=== PATIENT | female | born 1985 | race Caucasian/White ===

== ENCOUNTER → 2016-06-03 | Outpatient (CLI) | payer BC ==
--- NOTE | 2016-06-04 05:47 | REP ---
LEFT ANKLE, FOUR VIEWS: HISTORY: Injury. There is no acute fracture or dislocation. The joint space is normal in appearance. Soft tissue swelling is present over the lateral malleolus. IMPRESSION: There is no acute fracture or dislocation. Signed by Shaka Chung MD 06/04/2016 08:47 A
== END ==
LOC: M WUC 18:45
PROVIDERS: ATTEND Physician Assistant
DX: M25.572 Pain in left ankle and joints of left foot (principal)

== ENCOUNTER → 2020-06-23 | Outpatient (REF) | LOC: M LABSMTC 10:39 | PROVIDERS: ATTEND Pediatrics | DX: Z20.818 Contact with and (suspected) exposure to other bacterial communicable diseases (principal) ==

== ENCOUNTER → 2020-12-05 | Outpatient (CLI) | payer BC ==
[2020-12-05 13:37] LABS: C REACTIVE PROTEIN QUANTITATIV 1.29 MG/DL (0.00-0.30)
[2020-12-05 14:01] LABS: HEPATITIS B SURFACE ANTIGEN NEGATIVE (NEGATIVE)
[2020-12-05 14:28] LABS: HEPATITIS B CORE ANTIBODY IGM NEGATIVE (NEGATIVE)
[2020-12-05 14:31] LABS: HEPATITIS A ANTIBODY IGM NEGATIVE (NEGATIVE); HIV 1&2 SCREEN CENTAUR NEGATIVE (NEGATIVE)
[2020-12-06 17:07] LABS: ANTINUCLEAR ANTIBODIES DIRECT Negative (Negative); CYTOMEGALOVIRUS IgG ANTIBODY <0.60 U/mL (0.00-0.59)
== END ==
LOC: M LAB 11:26
PROVIDERS: ATTEND Nurse Practitioner
DX: D72.820 Lymphocytosis (symptomatic) (principal); R74.8 Abnormal levels of other serum enzymes; R53.82 Chronic fatigue, unspecified

== ENCOUNTER → 2021-05-28 | Outpatient (CLI) | payer BC | LOC: M LAB 10:37 | PROVIDERS: ATTEND Nurse Practitioner | DX: E55.9 Vitamin D deficiency, unspecified (principal) ==

== ENCOUNTER → 2021-12-12 | Outpatient (CLI) | payer BC | LOC: M LAB 12:56 | PROVIDERS: ATTEND Advanced Practice Midwife | DX: O20.0 Threatened abortion (principal) ==

== ENCOUNTER → 2021-12-17 | Outpatient (CLI) | payer BC | LOC: M RAD 10:52 | PROVIDERS: ATTEND Advanced Practice Midwife | DX: O20.0 Threatened abortion (principal); Z3A.01 Less than 8 weeks gestation of pregnancy ==

== ENCOUNTER → 2021-12-26 | Outpatient (CLI) | payer BC ==
[~2021-12-26] MED LIST: ERGO500029 PO; PRENTAB7 PO
== END ==
LOC: M LABSMTC 09:22
PROVIDERS: ATTEND Anesthesiology
DX: Z01.818 Encounter for other preprocedural examination (principal); Z11.52 Encounter for screening for COVID-19

== ENCOUNTER 2021-12-28 13:21 | Day surgery (SDC) | payer BC ==
[~2021-12-28] VITALS: Ht 165.1 cm; Wt 81.6 kg
[2021-12-28 13:54] LABS: HEMOGLOBIN 10.1 g/dl (12.0-15.5); MEAN CORPUSCULAR HEMOGLOBIN 20.5 pg (27.0-33.0); MEAN CORPUSCULAR HGB CONC 30.6 g/dl (32.0-36.5); MEAN CORPUSCULAR VOLUME 67.1 fl (80.0-96.0); PLATELET COUNT, AUTOMATED 376 10^3/uL (150-450); RED BLOOD COUNT 4.92 10^6/uL (4.00-5.40); WHITE BLOOD COUNT 9.7 10^3/uL (4.0-10.0)
[2021-12-28] MEDS ORDERED: METOCLOPRAMIDE INJ 10MG/2ML VIAL (J2765 PER 1) As Ordered ONE (16:00)
[2021-12-28] MEDS ORDERED: ONDANSETRON 4MG 2ML VIAL As Ordered ONE (16:00)
[2021-12-28] MEDS ORDERED: ACETAMINOPHEN 1000MG 100ML IV BTL (OFIRMEV) (J0131 PER 10MG) As Ordered ONE (16:00)
[2021-12-28] MEDS ORDERED: MIDAZOLAM INJ 2MG/2ML VIAL (J2250 PER 1MG) As Ordered ONE (16:00)
[2021-12-28] MEDS ORDERED: propofoL 200 MG/20 ML VIAL As Ordered ONE (16:00)
[2021-12-28] MEDS ORDERED: LIDOCAINE 2% 100MG/5ML SDV (FOR ANES.) As Ordered ONE (16:00)
[2021-12-28] MEDS ORDERED: KETOROLAC 60MG 2ML VIAL As Ordered ONE (16:00)
[2021-12-28] MEDS ORDERED: fentaNYL 100 MCG/2 ML INJECTION As Ordered ONE (16:00)
[2021-12-28] MEDS ORDERED: LIDOCAINE W/EPINEPHRINE 1% 20ML VIAL As Ordered ONE (17:17)
[2021-12-28] MEDS ORDERED: LIDOCAINE 1% SDV 30ML VIAL As Ordered ONE (17:19)
[2021-12-28] MEDS ORDERED: METHYLERGONOVINE MALEATE 0.2 MG/ML VIAL (J2210) As Ordered ONE (17:20)
[2021-12-28] MEDS ORDERED: SCOPOLAMINE 1MG TRANSDERMAL PATCH TOP ONE (17:30)
[2021-12-28] MEDS ORDERED: SCOPOLAMINE 1MG TRANSDERMAL PATCH As Ordered ONE (17:31)
[2021-12-28] MEDS ORDERED: LR 1,000 ML IV SCH (18:40)
[2021-12-28] MEDS ORDERED: RHOGAM 300 MCG (1500 IU) INJ (J2790) IM ONE (19:00)
[2021-12-28] MEDS ORDERED: ACETAMINOPHEN 500 MG TAB PO ONE (19:00)
[2021-12-28] MEDS ORDERED: DOXYCYCLINE HYCLATE 100MG TABLET PO ONE (19:00)
[2021-12-28 19:15] VITALS: BP 119/79
== END 2021-12-28 19:24 | disposition home or self-care (01) ==
LOC: M SDC 13:21
PROVIDERS: ATTEND Specialist
DX: O02.1 Missed abortion (principal); Z91.040 Latex allergy status
CPT/HCPCS: 36415; 59820; 85027; 86850; 86900; 86901; 88305; J0131; J1885; J2250; J2405; J2765; J2790; J3010

== ENCOUNTER → 2022-03-11 | Outpatient (CLI) | payer BC | LOC: M LAB 15:30 | PROVIDERS: ATTEND Advanced Practice Midwife | DX: O09.299 Supervision of pregnancy with other poor reproductive or obstetric history, unspecified trimester (principal); Z3A.00 Weeks of gestation of pregnancy not specified ==

== ENCOUNTER → 2022-03-13 | Outpatient (CLI) | payer BC | LOC: M LAB 15:32 | PROVIDERS: ATTEND Advanced Practice Midwife | DX: O09.299 Supervision of pregnancy with other poor reproductive or obstetric history, unspecified trimester (principal); Z3A.00 Weeks of gestation of pregnancy not specified ==

== ENCOUNTER → 2022-03-14 | Outpatient (CLI) | payer BC | LOC: M RAD 15:06 | PROVIDERS: ATTEND Obstetrics & Gynecology | DX: O03.9 Complete or unspecified spontaneous abortion without complication (principal) | CPT/HCPCS: 36415; 76817; 86901; J2790 ==

== ENCOUNTER → 2022-03-15 | Outpatient (CLI) | payer BC ==
[2022-03-15 17:22] LABS: HEMATOCRIT 33.2 % (36.0-47.0); MEAN CORPUSCULAR HEMOGLOBIN 20.4 pg (27.0-33.0); MEAN CORPUSCULAR HGB CONC 30.1 g/dl (32.0-36.5); MEAN CORPUSCULAR VOLUME 67.8 fl (80.0-96.0); PLATELET COUNT, AUTOMATED 385 10^3/uL (150-450); WHITE BLOOD COUNT 6.5 10^3/uL (4.0-10.0)
[2022-03-15 17:39] LABS: ALBUMIN 3.9 GM/DL (3.2-5.2); ALT/SGPT 19 U/L (12-78); BILIRUBIN,TOTAL 0.4 MG/DL (0.2-1.0); BLOOD UREA NITROGEN 8 MG/DL (7-18); CALCIUM LEVEL 8.9 MG/DL (8.5-10.1); CARBON DIOXIDE LEVEL 26 MEQ/L (21-32); CHLORIDE LEVEL 109 MEQ/L (98-107); CREATININE FOR GFR 0.78 MG/DL (0.55-1.30); GLOMERULAR FILTRATION RATE > 60.0 (>60); GLUCOSE, FASTING 119 MG/DL (70-100); HCG, SERUM QUANTITATIVE 500 MIU/ML; POTASSIUM SERUM 3.8 MEQ/L (3.5-5.1); SODIUM LEVEL 142 MEQ/L (136-145); TOTAL PROTEIN 7.4 GM/DL (6.4-8.2)
== END ==
LOC: M LAB 15:46
PROVIDERS: ATTEND Obstetrics & Gynecology
DX: O03.9 Complete or unspecified spontaneous abortion without complication (principal)

== ENCOUNTER → 2022-03-22 | Outpatient (CLI) | payer BC | LOC: M LAB 09:26 | PROVIDERS: ATTEND Obstetrics & Gynecology | DX: O03.9 Complete or unspecified spontaneous abortion without complication (principal) ==

== ENCOUNTER → 2022-03-25 | Outpatient (CLI) | payer BC | LOC: M LAB 11:14 | PROVIDERS: ATTEND Obstetrics & Gynecology | DX: O03.9 Complete or unspecified spontaneous abortion without complication (principal) ==

== ENCOUNTER → 2022-08-26 | Outpatient (CLI) | payer BC ==
[2022-08-26 17:44] LABS: HEMATOCRIT 31.5 % (36.0-47.0); HEMOGLOBIN 9.8 g/dl (12.0-15.5); MEAN CORPUSCULAR HEMOGLOBIN 20.6 pg (27.0-33.0); MEAN CORPUSCULAR HGB CONC 31.1 g/dl (32.0-36.5); MEAN CORPUSCULAR VOLUME 66.2 fl (80.0-96.0); PLATELET COUNT, AUTOMATED 324 10^3/uL (150-450); RED BLOOD COUNT 4.76 10^6/uL (4.00-5.40); WHITE BLOOD COUNT 7.8 10^3/uL (4.0-10.0)
[2022-08-26 18:32] LABS: HIV 1&2 SCREEN ATELLICA NEGATIVE (NEGATIVE)
[2022-08-26 19:14] LABS: GC DNA AMPLIFICATION NEGATIVE (NEGATIVE)
== END ==
LOC: M LAB 16:11
PROVIDERS: ATTEND Specialist
DX: Z36.9 Encounter for antenatal screening, unspecified (principal)

== ENCOUNTER → 2022-10-10 | Outpatient (CLI) | payer BC | LOC: M RAD 13:19 | PROVIDERS: ATTEND Obstetrics & Gynecology | DX: Z34.92 Encounter for supervision of normal pregnancy, unspecified, second trimester (principal); Z3A.20 20 weeks gestation of pregnancy ==

== ENCOUNTER → 2022-11-26 | Outpatient (CLI) | payer BC ==
[2022-11-26 13:44] LABS: HEMATOCRIT 30.5 % (36.0-47.0); HEMOGLOBIN 9.4 g/dl (12.0-15.5); MEAN CORPUSCULAR HEMOGLOBIN 21.3 pg (27.0-33.0); MEAN CORPUSCULAR HGB CONC 30.8 g/dl (32.0-36.5); PLATELET COUNT, AUTOMATED 270 10^3/uL (150-450); RED BLOOD COUNT 4.42 10^6/uL (4.00-5.40); WHITE BLOOD COUNT 8.5 10^3/uL (4.0-10.0)
[2022-11-26 15:06] LABS: GC DNA AMPLIFICATION NEGATIVE (NEGATIVE)
== END ==
LOC: M LAB 11:44
PROVIDERS: ATTEND Obstetrics & Gynecology
DX: O09.522 Supervision of elderly multigravida, second trimester (principal); Z3A.00 Weeks of gestation of pregnancy not specified

== ENCOUNTER → 2023-01-08 | Outpatient (CLI) | payer BC | LOC: M RAD 13:25 | PROVIDERS: ATTEND Obstetrics & Gynecology | DX: O24.419 Gestational diabetes mellitus in pregnancy, unspecified control (principal); Z3A.33 33 weeks gestation of pregnancy ==

== ENCOUNTER → 2023-01-28 | Outpatient (CLI) | payer BC ==
[2023-01-28 14:52] LABS: HEMATOCRIT 34.5 % (36.0-47.0); HEMOGLOBIN 10.5 g/dl (12.0-15.5); MEAN CORPUSCULAR HEMOGLOBIN 21.4 pg (27.0-33.0); MEAN CORPUSCULAR HGB CONC 30.4 g/dl (32.0-36.5); MEAN CORPUSCULAR VOLUME 70.4 fl (80.0-96.0); PLATELET COUNT, AUTOMATED 196 10^3/uL (150-450); WHITE BLOOD COUNT 9.5 10^3/uL (4.0-10.0)
[2023-01-28 14:56] LABS: TOTAL PROTEIN,RANDOM URINE 21.8 MG/DL (0.0-14.0)
[2023-01-28 14:58] LABS: LDH LACTATE DEHYDROGENASE 222 U/L (120-246)
[2023-01-28 14:59] LABS: ALT/SGPT 14 U/L (7.0-40); AST/SGOT 27 U/L (<34); BILIRUBIN,TOTAL 0.4 MG/DL (0.3-1.2); CREATININE FOR GFR 0.64 MG/DL (0.55-1.30); GLOMERULAR FILTRATION RATE > 60.0 (>60)
[2023-01-28 15:00] LABS: CREATININE,RANDOM URINE 155.7 MG/DL
[2023-01-28 16:42] LABS: URIC ACID 6.5 MG/DL (3.1-7.8)
== END ==
LOC: M PLALAB 10:23
PROVIDERS: ATTEND Specialist
DX: O24.419 Gestational diabetes mellitus in pregnancy, unspecified control (principal)

== ENCOUNTER → 2024-06-24 | Outpatient (CLI) | payer BC ==
[~2024-06-24] MED LIST changes: +COLA100C5 PO; +IBUP80TA PO; +PERCOCET PO
[2024-06-24 18:19] LABS: HEMATOCRIT 34.1 % (36.0-47.0); HEMOGLOBIN 10.6 g/dl (12.0-15.5); MEAN CORPUSCULAR HEMOGLOBIN 20.2 pg (27.0-33.0); MEAN CORPUSCULAR HGB CONC 31.1 g/dl (32.0-36.5); PLATELET COUNT, AUTOMATED 301 10^3/uL (150-450); RED BLOOD COUNT 5.25 10^6/uL (4.00-5.40); WHITE BLOOD COUNT 10.5 10^3/uL (4.0-10.0)
[2024-06-24 18:26] LABS: TOTAL PROTEIN,RANDOM URINE 9.9 MG/DL (0.0-14.0)
[2024-06-24 18:31] LABS: CREATININE,RANDOM URINE 136.7 MG/DL
[2024-06-24 18:32] LABS: URIC ACID 4.8 MG/DL (3.1-7.8)
[2024-06-24 18:34] LABS: ALT/SGPT 9 U/L (7.0-40); AST/SGOT 12 U/L (<34); BILIRUBIN,TOTAL 0.6 MG/DL (0.3-1.2); CREATININE FOR GFR 0.57 MG/DL (0.55-1.30); GLOMERULAR FILTRATION RATE > 60.0 (>60); LDH LACTATE DEHYDROGENASE 191 U/L (120-246)
[2024-06-24 18:48] LABS: HEPATITIS B SURFACE ANTIGEN NEGATIVE (NEGATIVE)
[2024-06-24 19:01] LABS: HIV 1&2 SCREEN NEGATIVE (NEGATIVE)
[2024-06-24 19:09] LABS: HEPATITIS C VIRUS ABY INDEX 0.11 INDEX (<0.8)
== END ==
LOC: M LAB 15:22
PROVIDERS: ATTEND Nurse Practitioner Family
DX: O09.299 Supervision of pregnancy with other poor reproductive or obstetric history, unspecified trimester (principal); Z3A.00 Weeks of gestation of pregnancy not specified; Z86.32 Personal history of gestational diabetes

== ENCOUNTER → 2024-06-25 | Outpatient (CLI) | payer BC ==
[2024-06-25 12:29] LABS: PERCENT SATURATION 36.4 % (13.2-45.0)
[2024-06-25 12:31] LABS: FERRITIN 42.4 NG/ML (7.3-270.7)
== END ==
LOC: M LAB 10:37
PROVIDERS: ATTEND Nurse Practitioner Family
DX: D56.1 Beta thalassemia (principal)

== ENCOUNTER → 2024-07-27 | Outpatient (REF) | payer BC | LOC: M SFHCWAGY 12:54 | PROVIDERS: ATTEND Obstetrics & Gynecology | DX: Z34.82 Encounter for supervision of other normal pregnancy, second trimester (principal) ==

== ENCOUNTER → 2024-08-18 | Outpatient (CLI) | payer BC | LOC: M RAD 13:49 | PROVIDERS: ATTEND Obstetrics & Gynecology | DX: O32.2XX0 Maternal care for transverse and oblique lie, not applicable or unspecified (principal); Z3A.19 19 weeks gestation of pregnancy ==

== ENCOUNTER → 2024-12-15 | Outpatient (CLI) | payer BC ==
[~2024-12-15] MED LIST changes: +ECOT81TA5 PO
== END ==
LOC: M RAD 11:16
PROVIDERS: ATTEND Advanced Practice Midwife
DX: O09.523 Supervision of elderly multigravida, third trimester (principal); Z3A.36 36 weeks gestation of pregnancy

== ENCOUNTER → 2024-12-17 | Outpatient (CLI) | payer BC ==
[2024-12-17 11:28] LABS: PLATELET COUNT, AUTOMATED 196 10^3/uL (150-450)
[2024-12-17 13:58] LABS: ALT/SGPT 11 U/L (7.0-40); AST/SGOT 23 U/L (<34); CALCIUM LEVEL 8.3 MG/DL (8.5-10.1); CARBON DIOXIDE LEVEL 24 MMOL/L (20-31); CHLORIDE LEVEL 106 MMOL/L (98-107); CREATININE FOR GFR 0.60 MG/DL (0.55-1.30); GLOMERULAR FILTRATION RATE > 90.0 (>60); POTASSIUM SERUM 3.9 MMOL/L (3.5-5.1); SODIUM LEVEL 140 MMOL/L (136-145)
[2024-12-17 14:35] LABS: TOTAL PROTEIN,RANDOM URINE 20.2 MG/DL (0.0-14.0)
== END ==
LOC: M LAB 10:05
PROVIDERS: ATTEND Obstetrics & Gynecology
DX: O16.9 Unspecified maternal hypertension, unspecified trimester (principal)

== ENCOUNTER → 2024-12-20 | Outpatient (REF) | payer BC | LOC: M SFHCWAGY 12:27 | PROVIDERS: ATTEND Obstetrics & Gynecology | DX: Z34.83 Encounter for supervision of other normal pregnancy, third trimester (principal) ==